=== PATIENT | male | born 1980 | race Two or more races ===

== ENCOUNTER 2021-04-17 13:04 | Emergency (ER) | payer SELFPAY ==
[~2021-04-17] VITALS: Ht 177.8 cm; Wt 99.8 kg
[2021-04-17 13:16] VITALS: BP 137/74
[2021-04-17] MEDS ORDERED: methylPREDNISolone SOD SUCC 125 MG/2 ML VL IM ONE (14:30)
[2021-04-17] MEDS ORDERED: diphenhdrAMINE HCL 50 MG/1 ML VL IM ONE (14:30)
[2021-04-17] MEDS ORDERED: ACETAMINOPHEN 325 MG TAB PO ONE ×2 (14:48→15:00)
== END 2021-04-17 14:54 | disposition home or self-care (01) ==
LOC: ER 13:04
DX: T78.40XA Allergy, unspecified, initial encounter (principal); X58.XXXA Exposure to other specified factors, initial encounter
CPT/HCPCS: 96372; 99284; J1200; J2930

== ENCOUNTER 2022-10-30 11:45 | Emergency (ER) | payer OTHER ==
[~2022-10-30] VITALS: Ht 175.3 cm; Wt 90.0 kg
[2022-10-30 12:40] VITALS: BP 138/88
[2022-10-30] MEDS ORDERED: HYDROcodone-ACET 10/325MG TAB PO ONE (12:45)
[2022-10-30] MEDS ORDERED: TRAM50TA2 PO (13:45)
== END 2022-10-30 14:03 | disposition home or self-care (01) ==
LOC: ER 11:45
DX: S43.101A Unspecified dislocation of right acromioclavicular joint, initial encounter (principal); S09.90XA Unspecified injury of head, initial encounter; F17.210 Nicotine dependence, cigarettes, uncomplicated; W20.8XXA Other cause of strike by thrown, projected or falling object, initial encounter; Y93.89 Activity, other specified; Y92.89 Other specified places as the place of occurrence of the external cause; Y99.8 Other external cause status
CPT/HCPCS: 70450; 73030